=== PATIENT | female | born 1965 | race Caucasian/White ===

== ENCOUNTER 2017-10-10 13:58 | Observation (INO) | payer BC, OTHER ==
[2017-10-10] MEDS ORDERED: PROMETHAZINE 25 MG/ML VIAL ONE ×2 (14:36→16:15)
[2017-10-10] MEDS ORDERED: MEPERIDINE HCL 25 MG/0.5 ML ONE ×2 (14:36→16:15)
[2017-10-10 14:52] LABS: Absolute Lymphocytes (CBC) 1.7 K/uL (0.7-4.9); Absolute Monocytes 0.3 K/uL (0.1-1.3); Absolute Neutrophil 16.3 K/uL (1.8-8.0); Basophils % 0.5 % (0-1.3); Hematocrit 42.5 % (36.0-45.0); Lymphocytes % 9.4 % (15.3-44.8); MCH 28.9 pg (27.0-35.0); MCV 86.9 fL (80-100); MPV 8.1 fL (7.6-11.3); Monocytes % 1.5 % (3.3-12.3); RBC Red Blood Cell Count 4.88 M/uL (3.86-4.86)
[2017-10-10 15:12] LABS: Bilirubin Direct 0.1 mg/dL (0-0.2); Bilirubin Total 0.3 mg/dL (0.3-1.2)
--- NOTE | 2017-10-10 15:54 | RAD REPORT ---
EXAM DESCRIPTION: CT - Abdomen Pelvis W Contrast - 10/10/2017 3:34 pm CLINICAL HISTORY: Epigastric pain COMPARISON: None. TECHNIQUE: Biphasic, helical CT imaging of the abdomen and pelvis was performed following 100 ml non -ionic IV contrast. Oral contrast was given. All CT scans are performed using dose optimization technique as appropriate and may include automated exposure control or mA/KV adjustment according to patient size. FINDINGS: No suspicious findings in the lung bases. The liver, spleen, and pancreas show no suspicious findings. Gallbladder and biliary tree are also wi thout suspicious finding. Gallstones can be occult. Symmetric renal function is seen with no hydronephrosis or suspicious renal mass. No pyelonephritis o r acute renal parenchymal process. No urinary bladder abnormality. Uterus is absent. No suspicious ov patrick finding on the right. A 3.2 centimeter left ovarian cyst is present. No dilated bowel loops or bowel wall thickening. No appendicitis. No free air, free fluid or inflamma tory stranding. No hernia, mass or bulky lymphadenopathy. The urinary bladder is without significant finding. No adrenal abnormality. No suspicious bony findings. IMPRESSION: Gallbladder is well filled but not abnormally distended. No acute gallbladder or biliary tree finding. Gallstones can be occult. No stomach, pancreatic or duodenal abnormality as a source for epigastric pain. A 3.2 centimeter left ovarian cyst is present. This can be monitored on a followup study in 3-4 month s to assure involution or stability.
--- NOTE | 2017-10-10 15:55 | RAD REPORT ---
EXAM DESCRIPTION: US - Abdomen Exam Limited - 10/10/2017 3:14 pm CLINICAL HISTORY: Epigastric pain COMPARISON: None. FINDINGS: A 2.1 centimeter gallstone is present fixed near the neck of the gallbladder. No other sto jonh or sludge confirmed. No wall thickening or pericholecystic fluid. Biliary tree within normal limi ts. No duct stone identified. IMPRESSION: Single 2.1 cm gallstone fixed near the neck of the gallbladder. No other gallbladder or biliary tree finding.
[2017-10-10] MEDS ORDERED: NA CHLORIDE 0.9% 1,000 ML ONE (16:12)
[2017-10-10] MEDS ORDERED: CEFOXITIN/SWI 1gm 1 GM/10 ML SYR ONE (16:13)
[2017-10-10] MEDS ORDERED: METRONIDAZOLE 500mg IVPB 500 MG/100 ML BAG IV ONE (16:15)
[2017-10-10] MEDS ORDERED: KCL 20 MEQ/100 mL IVPB 20 MEQ/100 ML BAG IV ONE (16:16)
--- NOTE | 2017-10-10 16:26 | EDPHYS ---
Physician Documentation [facility] Name: Radha Fink Age: 52 yrs Sex: Female : 1965 Arrival Date: 10/10/2017 Time: 14:02 Bed 23 Private MD: ED Physician Chin Hernandez HPI: 10/10 16:17 This 52 yrs old Female presents to ER via Wheelchair with complaints of jr8 Abdominal Pain, Vomiting. 16:17 The patient presents with abdominal pain in the epigastric area, in the upper abdomen. jr8 Onset: The symptoms/episode began/occurred acutely, today. The symptoms do not radiate. Associated signs and symptoms: Pertinent positives: nausea and vomiting. The symptoms are described as shooting. Modifying factors: The symptoms are alleviated by nothing, the symptoms are aggravated by nothing. Severity of pain: At its worst the pain was moderate in the emergency department the pain is unchanged. The patient has not experienced similar symptoms in the past. The patient has not recently seen a physician. 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 - Social history:: Smoking status: Patient/guardian denies using tobacco. ROS: 16:17 Eyes: Negative for injury, pain, redness, and discharge, ENT: Negative for injury, jr8 pain, and discharge, Neck: Negative for injury, pain, and swelling, Cardiovascular: Negative for chest pain, palpitations, and edema, Respiratory: Negative for shortness of breath, cough, wheezing, and pleuritic chest pain, Back: Negative for injury and pain, MS/Extremity: Negative for injury and deformity, Skin: Negative for injury, rash, and discoloration, Neuro: Negative for headache, weakness, numbness, tingling, and seizure. 16:17 Abdomen/GI: Positive for abdominal pain, nausea and vomiting, Negative for diarrhea, constipation, abdominal cramps, abdominal distension, anorexia, dysphagia, hematemesis, black/tarry stool, rectal pain, rectal bleeding, bowel incontinence, flatulence. Exam: 16:17 Eyes: Pupils equal round and reactive to light, extra-ocular motions intact. Lids and jr8 lashes normal. Conjunctiva and sclera are non-icteric and not injected. Cornea within normal limits. Periorbital areas with no swelling, redness, or edema. ENT: Nares patent. No nasal discharge, no septal abnormalities noted. Tympanic membranes are normal and external auditory canals are clear. Oropharynx with no redness, swelling, or masses, exudates, or evidence of obstruction, uvula midline. Mucous membranes moist. Neck: Trachea midline, no thyromegaly or masses palpated, and no cervical lymphadenopathy. Supple, full range of motion without nuchal rigidity, or vertebral point tenderness. No Meningismus. Cardiovascular: Regular rate and rhythm with a normal S1 and S2. No gallops, murmurs, or rubs. Normal PMI, no JVD. No pulse deficits. Respiratory: Lungs have equal breath sounds bilaterally, clear to auscultation and percussion. No rales, rhonchi or wheezes noted. No increased work of breathing, no retractions or nasal flaring. Back: No spinal tenderness. No costovertebral tenderness. Full range of motion. Skin: Warm, dry with normal turgor. Normal color with no rashes, no lesions, and no evidence of cellulitis. MS/ Extremity: Pulses equal, no cyanosis. Neurovascular intact. Full, normal range of motion. Neuro: Awake and alert, GCS 15, oriented to person, place, time, and situation. Cranial nerves II-XII grossly intact. Motor strength 5/5 in all extremities. Sensory grossly intact. Cerebellar exam normal. Normal gait. 16:17 Abdomen/GI: Inspection: obese Bowel sounds: active, all quadrants, Palpation: soft, in all quadrants, moderate abdominal tenderness, in the epigastric area and right upper quadrant, voluntary guarding, is elicited in the epigastric area, involuntary guarding, is not appreciated, no appreciated organomegaly, Indicators: McBurney's point is not tender, Adamson's sign is positive, Rovsing's sign is negative. Vital Signs: 14:06 BP 144 / 110; Pulse 77; Resp 19; Temp 97.6(TE); Pulse Ox 100% on R/A; Weight 86.18 kg; la1 Height 5 ft. 0 in. (152.40 cm); 14:30 BP 116 / 59; Pulse 67; Resp 16; Pulse Ox 96% on R/A; tl3 16:40 BP 116 / 62; Pulse 70; Resp 16; Pulse Ox 99% on 2 lpm NC; tl3 14:06 Body Mass Index 37.11 (86.18 kg, 152.40 cm) la1 MDM: 14:13 Patient medically screened. [facility] 16:23 Data reviewed: vital signs, nurses notes, lab test result(s), radiologic studies, CT jr8 scan, ultrasound. Data interpreted: Pulse oximetry: on room air is 96 %. Interpretation: normal. Counseling: I had a detailed discussion with the patient and/or guardian regarding: the historical points, exam findings, and any diagnostic results supporting the discharge/admit diagnosis, lab results, radiology results, the need for further work-up and treatment in the hospital. Physician consultation: Robbie Melgoza MD was called at 16:24, was contacted at 16:24, regarding admission, to the medical/surgical unit. consult, patient's condition, and will see patient. 10/10 14:15 Order name: Basic Metabolic Panel; Complete Time: 15:32 10/10 14:15 Order name: CBC with Diff; Complete Time: 15:14 10/10 14:15 Order name: Creatinine for Radiology; Complete Time: 15:14 10/10 14:15 Order name: Hepatic Function; Complete Time: 15:32 10/10 14:15 Order name: Lipase; Complete Time: 15:32 10/10 14:16 Order name: US Abdomen Limited; Complete Time: 15:58 10/10 15:14 Order name: CT Abd/Pelvis - W/Contrast; Complete Time: 15:58 10/10 14:15 Order name: IV Saline Lock; Complete Time: 15:23 10/10 14:15 Order name: Labs collected and sent; Complete Time: 15:23 10/10 14:15 Order name: Urine Dipstick-Ancillary (obtain specimen); Complete Time: 15:23 10/10 14:15 Order name: EKG - Nurse/Tech; Complete Time: 14:25 10/10 16:33 Order name: CONS Physician Consult EDMS 10/10 16:33 Order name: CONS Physician Consult EDMS Administered Medications: 14:45 Drug: Demerol 25 mg Route: IVP; Infused Over: 3 mins; Site: right antecubital; tl3 14:45 Drug: Promethazine 12.5 mg Route: IVP; Infused Over: 3 mins; Site: right antecubital; tl3 16:36 Drug: Flagyl 500 mg Volume: 100 ml; Route: IVPB; Rate: 200 ml/hr; Infused Over: 30 tl3 mins; Site: right antecubital; Delivery: Primary tubing; 16:37 Drug: Mefoxin 1 grams Route: IVPB; Infused Over: 30 mins; Site: right antecubital; tl3 Delivery: Primary tubing; 16:38 Drug: Demerol 25 mg Route: IVP; Infused Over: 3 mins; Site: right antecubital; tl3 16:38 Drug: Phenergan 12.5 mg Route: IVP; Infused Over: 5 mins; Site: right antecubital; tl3 16:38 Drug: Potassium Chloride 20 mEq Route: IV; Rate: calculated rate; Site: right tl3 antecubital; Delivery: Primary tubing; 16:38 Drug: NS 0.9% 1000 ml Route: IV; Rate: 100 ml/hr; Site: right antecubital; Delivery: tl3 Primary tubing; Disposition: 10/10/17 16:26 Hospitalization ordered by Naida Gloria for Observation. Preliminary diagnosis are Cholelithiasis, Elevated white blood cell count, Unspecified abdominal pain. - Bed requested for Telemetry/MedSurg (observation). - Status is Observation. tl3 - Condition is Stable. - Problem is new. - Symptoms have improved. UTI on Admission? No Addendum: 10/12/2017 09:04 Co-signature as Attending Physician, Chin Hernandez MD I agree with the assessment and c cunha plan of care. Signatures: Dispatcher [employer] EDLA Chin Hernandez MD MD cha Roszak, Josh, PA PA jr8 Nikita Ritter RN RN [email or web address] Paradise Bran Tammy, RN RN tl3 Corrections: (The following items were deleted from the chart) 10/10 17:10 16:26 Hospitalization Ordered by Naida Gloria MD for Observation. Preliminary ag diagnosis is Cholelithiasis; Elevated white blood cell count; Unspecified abdominal pain. Bed requested for Telemetry/MedSurg (observation). Status is Observation. Condition is Stable. Problem is new. Symptoms have improved. UTI on Admission? No. jr8 18:11 17:10 10/10/2017 16:26 Hospitalization Ordered by Naida Gloria MD for Observation. tl3 Preliminary diagnosis is Cholelithiasis; Elevated white blood cell count; Unspecified abdominal pain. Bed requested for Telemetry/MedSurg (observation). Status is Observation. Condition is Stable. Problem is new. Symptoms have improved. UTI on Admission? No. ag
--- NOTE | 2017-10-10 16:26 | ER ---
Nurse's Notes [facility] Name: Radha Fink Age: 52 yrs Sex: Female : 1965 Arrival Date: 10/10/2017 Time: 14:02 Bed 23 Private MD: Diagnosis: Cholelithiasis;Elevated white blood cell count;Unspecified abdominal pain Presentation: 10/10 14:04 Presenting complaint: Patient states: Epigastric pain since 0400 this morning, la1 nausea/vomiting, pt appears uncomfortable. Transition of care: patient was not received from another setting of care. Onset of symptoms was October 10, 2017. Initial Sepsis Screen: Does the patient meet any 2 criteria? No. Patient's initial sepsis screen is negative. Does the patient have a suspected source of infection? No. Patient's initial sepsis screen is negative. Care prior to arrival: None. 14:04 Method Of Arrival: Wheelchair la1 14:04 Acuity: CHICO 2 la1 Triage Assessment: 16:42 General: Behavior is cooperative, appropriate for age, anxious, listless. 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 - Social history:: Smoking status: Patient/guardian denies using tobacco. Screenin:42 Abuse screen: Denies threats or abuse. Nutritional screening: No deficits noted. tl3 Tuberculosis screening: No symptoms or risk factors identified. Fall Risk None identified. Assessment: 14:30 General: Appears distressed, uncomfortable, obese, well groomed, well developed, well tl3 nourished. Pain: Complains of pain in epigastric area Pain currently is 10 out of 10 on a pain scale. Neuro: Level of Consciousness is awake, alert, obeys commands, Oriented to person, place, time, situation, Appropriate for age. Cardiovascular: Heart tones S1 S2 present. Cardiovascular: Capillary refill is > 3 seconds in bilateral fingers. Respiratory: Airway is patent Trachea midline Respiratory effort is even, labored, Respiratory pattern is regular, symmetrical. GI: Abdomen is round Bowel sounds present X 4 quads. Abd is soft and non tender Reports epigastric pain, vomiting. : No signs and/or symptoms were reported regarding the genitourinary system. EENT: No signs and/or symptoms were reported regarding the EENT system. Derm: No signs and/or symptoms reported regarding the dermatologic system. Musculoskeletal: No signs and/or symptoms reported regarding the musculoskeletal system. 15:40 Reassessment: No changes from previously documented assessment. Patient and/or family tl3 updated on plan of care and expected duration. Pain level reassessed. Patient is alert, oriented x 3, equal unlabored respirations, skin warm/dry/pink. pt resting, at bedside. 16:40 Reassessment: Patient appears in no apparent distress at this time. No changes from tl3 previously documented assessment. Patient and/or family updated on plan of care and expected duration. Pain level reassessed. Patient is alert, oriented x 3, equal unlabored respirations, skin warm/dry/pink. pt comfortable after administration of pain meds, family at bedside, o2 sats dropped to 90%, 2 L/M O2 per NC applied sats 99%. 17:37 Reassessment: Patient appears in no apparent distress at this time. No changes from tl3 previously documented assessment. Patient and/or family updated on plan of care and expected duration. Pain level reassessed. Patient is alert, oriented x 3, equal unlabored respirations, skin warm/dry/pink. report called to floor, Raiza NAGY. 17:37 Reassessment: pt assisted to bedside commode. tl3 Vital Signs: 14:06 BP 144 / 110; Pulse 77; Resp 19; Temp 97.6(TE); Pulse Ox 100% on R/A; Weight 86.18 kg; la1 Height 5 ft. 0 in. (152.40 cm); 14:30 BP 116 / 59; Pulse 67; Resp 16; Pulse Ox 96% on R/A; tl3 16:40 BP 116 / 62; Pulse 70; Resp 16; Pulse Ox 99% on 2 lpm NC; tl3 14:06 Body Mass Index 37.11 (86.18 kg, 152.40 cm) la1 ED Course: 13:45 No provider procedures requiring assistance completed. Inserted saline lock: 20 gauge tl3 in right antecubital area, using aseptic technique. Blood collected. 14:02 Patient arrived in ED. mr 14:05 Triage completed. la1 14:07 Arm band placed on right wrist. la1 14:13 Daniel Pitts PA is PHCP. jr8 14:13 Chin Hernandez MD is Attending Physician. jr8 14:30 Maricel Avelar, LILO is Primary Nurse. tl3 14:51 Ultrasound completed. Patient tolerated well. sg3 15:24 Patient has correct armband on for positive identification. Bed in low position. Call tl3 light in reach. Side rails up X 1. Adult w/ patient. Pulse ox on. NIBP on. 15:34 CT Abd/Pelvis - W/Contrast In Process Unspecified. EDMS 15:47 CT completed. Patient tolerated procedure well. Patient moved back from CT. jg1 16:25 Naida Gloria MD is Hospitalizing Provider. jr8 17:37 Patient admitted, IV remains in place. tl3 Administered Medications: 14:45 Drug: Demerol 25 mg Route: IVP; Infused Over: 3 mins; Site: right antecubital; tl3 14:45 Drug: Promethazine 12.5 mg Route: IVP; Infused Over: 3 mins; Site: right antecubital; tl3 16:36 Drug: Flagyl 500 mg Volume: 100 ml; Route: IVPB; Rate: 200 ml/hr; Infused Over: 30 tl3 mins; Site: right antecubital; Delivery: Primary tubing; 16:37 Drug: Mefoxin 1 grams Route: IVPB; Infused Over: 30 mins; Site: right antecubital; tl3 Delivery: Primary tubing; 16:38 Drug: Demerol 25 mg Route: IVP; Infused Over: 3 mins; Site: right antecubital; tl3 16:38 Drug: Phenergan 12.5 mg Route: IVP; Infused Over: 5 mins; Site: right antecubital; tl3 16:38 Drug: Potassium Chloride 20 mEq Route: IV; Rate: calculated rate; Site: right tl3 antecubital; Delivery: Primary tubing; 16:38 Drug: NS 0.9% 1000 ml Route: IV; Rate: 100 ml/hr; Site: right antecubital; Delivery: tl3 Primary tubing; Outcome: 16:26 Decision to Hospitalize by Provider. jr8 17:37 Admitted to Tele accompanied by tech, via wheelchair, with chart, Report called to tl3 Raiza NAGY 17:37 Condition: stable 17:37 Instructed on the need for admit. 18:11 Patient left the ED. tl3 Signatures: Dispatcher [employer] EDLuz Maria Rodriguez mr Spencer, Daniel Loaiza PA PA jr8 Nikita Ritter, RN RN la1 Sarah James sg3 Maricel Avelar, LILO RN tl3 Corrections: (The following items were deleted from the chart) 15:15 15:14 In radiology for Abdomen Limited+US.RAD.BRZ. EDFL sg3
[2017-10-10] MEDS ORDERED: ONDANSETRON 4 MG/2 ML VIAL IV PRN ×2 (18:04→18:27)
[2017-10-10] MEDS ORDERED: ZOLPIDEM TARTRATE 5 MG TABLET PO PRN (18:04)
[2017-10-10] MEDS ORDERED: HYDRALAZINE HCL 20 MG/ML VIAL IV PRN (18:08)
[2017-10-10] MEDS ORDERED: NA CHLORIDE 0.9% 1,000 ML IV SCH (18:27)
[2017-10-10] MEDS ORDERED: ACETAMINOPHEN 500 MG TAB PO PRN (18:27)
[2017-10-10] MEDS ORDERED: MORPHINE 4 MG/ML SYR IV PRN (18:27)
[2017-10-10] MEDS ORDERED: MORPHINE 2 MG/ML SYR IV PRN (18:27)
[2017-10-10] MEDS: D5 0.45 NS 1,000 ML IV SCH (20:14)
[2017-10-10] MEDS: Morphine 2 MG/2 ML SYR IV PRN (20:14)
[2017-10-10 20:21] LABS: Thyroid Stimulating Hormone 0.51 uIU/mL (0.34-5.60)
[2017-10-10] MEDS ORDERED: CEFOXITIN SODIUM 1 GM/VIAL IVPB SCH (22:00)
[2017-10-10 22:55] VITALS: BMI 36.9
[2017-10-11] MEDS: METRONIDAZOLE 500mg IVPB 500 MG/100 ML BAG IV SCH ×4 (00:45→17:26)
[2017-10-11] MEDS: PIPER/TAZO/NS 3.375gm 3.375 GM/100 ML BAG IVPB SCH ×3 (00:45→17:26)
[2017-10-11] MEDS: Morphine 2 MG/2 ML SYR IV PRN (02:07)
[2017-10-11] MEDS ORDERED: POTASSIUM CL 40 MEQ in NA CHLORIDE 0.9% 500 ML IV SCH (03:00)
[2017-10-11] MEDS: KCL 20 MEQ/100 mL IVPB 20 MEQ/100 ML BAG IV SCH ×4 (03:02→11:38)
--- NOTE | 2017-10-11 04:32 | HP ---
Date of Admission: 10/10/2017 Reason For Admission: Abdominal pain. No nausea, vomiting. History Of Present Illness: This is a 52-year-old female with history of overweight hypertension, hyperlipidemia, who presented with abdominal pain that started in the right upper quadrant around 4 a.m. progressively got worse. She does not have vomiting. She vomited her food and now she is only vomiting. The pain can get up to 8/10. There was no fever, no chills. No shortness of breath. No cough. In the ER, she was evaluated and found to have leukocytosis with white blood cells of 18.4. Ultrasound of the abdomen done showed 2.1 cm gallstone fixed near the neck of the gallbladder. CAT scan of the abdomen and pelvis showed ovarian cyst also gallbladder as well failed without any other finding. The patient has been admitted for cholecystectomy scheduled tomorrow morning. She currently continued to have abdominal pain. The pain is colicky. No more nausea or vomiting. Her at the bedside. Review of Systems: Otherwise as below. Past Medical History: Significant for hypertension, hyperlipidemia, overweight , hypothyroidism, thyroid cancer. Past Surgical History: Significant for hysterectomy, thyroid resection with biopsy, bilateral feet surgery. Allergies: NONE. Social History: She is . She has 3 kids. She is retired. Does not smoke. Does not use any drugs. Family History: Father alive and healthy. The mother . Home Medication: She is on hydrochlorothiazide , DEVIN inihibitor Other medication not available at this point. Review of Systems: Denies any fever, chills, night sweats, dizziness, lightheaded, headache, blurred vision. There is no cough, sputum, shortness of breath. She does have no chest pain. No palpitations. No PND, orthopnea, dyspnea, exertion, lower extremity edema. She does have nausea, vomiting, abdominal pain. There is no change in bowel movement. No diarrhea, constipation, dysuria, frequency, urgency, hematuria. There is no history of depression, anxiety, seizure, or stroke. Physical Examination: Vital Signs: Currently, blood pressure is 150/62, respiratory rate 16, pulse 70 , temperature 97.6. She is saturating 99% on room air. General: She is alert and oriented x3. Does not look in any distress. HEENT: Atraumatic, normocephalic. PERRLA. Oral mucosa is moist. Neck: Supple. No JVD. No carotid bruit. Chest: Clear to auscultation. Good air entry. Heart: Regular rate and rhythm. S1, S2 normal. No gallop or murmur. Abdomen: Soft. There is a right upper quadrant tenderness to palpation. Active bowel sounds. There are active bowel sounds. There is some rebound in the right upper quadrant. There is no guarding. Extremities: No clubbing, cyanosis, or edema. No calf tenderness. Neurologic: Grossly intact. Laboratory Data: Labs showed CBC within normal except for white blood cells 18.4, platelet normal. Chemistry within normal except for potassium at 3. Glucose 135, creatinine 0.76, globulin 4, lipase of 20, CT and US as above. Assessment And Plan: A 52-year-old female with history of hypertension, hyperlipidemia, overweight, who presented with abdominal pain and found to have large gallstones. Impression: 1. Choledocholithiasis with? cholecystitis. Given patient's leukocytosis, I would proceed with blood culture. I have started her empirically on Zosyn every 6 hours. Surgical consult requested. The patient will have surgery in a.m. We will continue IV fluid D5 half-normal. We will keep patient n.p.o. for now. 2. Abdominal pain. We will start patient on morphine 2 mg every 2 hours for pain control. 3. Nausea, vomiting. The patient is on Zofran. 4. History of hypertension. I will place the patient on hydralazine as needed. The patient will be n.p.o. and so she cannot resume her home medication. 5. No DVT prophylaxis. The patient may go on surgery tomorrow. 6. Hyperlipidemia. The patient was on statin I will hold that for now. The patient will be n.p.o. GRADY/KENTRELL Voice ID: [id number] [facility]
[2017-10-11] MEDS: D5 0.45 NS 1,000 ML IV SCH ×2 (04:56→15:00)
[2017-10-11 06:23] LABS: Absolute Monocytes 1.3 K/uL (0.1-1.3); Absolute Neutrophil 15.3 K/uL (1.8-8.0); Basophils % 0.1 % (0-1.3); Eosinophils % 0.1 % (0-4.4); Hematocrit 38.1 % (36.0-45.0); Lymphocytes % 10.6 % (15.3-44.8); MCH 28.9 pg (27.0-35.0); MCV 86.8 fL (80-100); MPV 7.7 fL (7.6-11.3); Monocytes % 6.9 % (3.3-12.3); RBC Red Blood Cell Count 4.38 M/uL (3.86-4.86)
[2017-10-11 06:42] LABS: Albumin 3.2 g/dL (3.2-5.5); Bilirubin Direct 0.1 mg/dL (0-0.2); Bilirubin Total 0.6 mg/dL (0.3-1.2); Potassium 3.3 mEq/L (3.6-5.0)
[2017-10-11] MEDS ORDERED: BUPIVACAINE 0.5% PF 10 ML VIAL ONE (07:42)
[2017-10-11] MEDS ORDERED: Ringers Lactate 1,000 ML IV ONE (08:32)
[2017-10-11] MEDS ORDERED: LIDOCAINE 1% MPF 5 ML VIAL ONE (09:06)
[2017-10-11] MEDS ORDERED: PROPOFOL 200 MG/20 ML VIAL IV ONE (09:06)
[2017-10-11] MEDS ORDERED: ROCURONIUM 50 MG/5 ML VIAL IV ONE (09:06)
[2017-10-11] MEDS ORDERED: FENTANYL CITR 100 MCG/2 ML ONE (09:07)
[2017-10-11] MEDS ORDERED: KETOROLAC 30 MG/ML INJ ONE (09:32)
[2017-10-11] MEDS ORDERED: ONDANSETRON HCL 40 MG/20 ML VIAL ONE (09:32)
[2017-10-11] MEDS ORDERED: DEXAMETHASONE 10 MG/ML VIAL ONE (09:32)
[2017-10-11] MEDS ORDERED: Phenylephrine HCl 10 MG/ML 1 ML VIAL ONE (09:41)
[2017-10-11] MEDS ORDERED: NEOSTIGMINE 1 MG/ML -5 ML SYRINGE ONE (09:51)
[2017-10-11] MEDS ORDERED: GLYCOPYRROLATE 0.2 MG/ML SYR ONE (09:51)
--- NOTE | 2017-10-11 10:34 | P.OP ---
Apple Checker: [place] FLEMING Preoperative diagnosis: Acute Cholecystitis and Cholelithiasis Postoperative diagnosis: same Primary procedure: Lap Alivia Anesthesia: General Estimated blood loss: min Specimen: GB Findings: as above Complications: None Transferred to: Recovery Room Condition: Good
[2017-10-11] MEDS ORDERED: Mastisol Adhesive Liq ONE (10:39)
[2017-10-11] MEDS ORDERED: ONDANSETRON 4 MG/2 ML VIAL IV PRN (11:17)
[2017-10-11] MEDS ORDERED: HYDROMORPHONE HCL 2 MG/ML inj IV PRN (11:17)
[2017-10-11] MEDS ORDERED: HYDROCODONE/APAP 7.5/325 MG TAB PO PRN (11:17)
--- NOTE | 2017-10-11 12:40 | PREOPCON ---
Date of Consultation: 10/10/2017 Reason: Abdominal pain. History Of Present Illness: The patient is a 52-year-old female who comes in with acute onset of epi gastric right upper quadrant pain associated with nausea, vomiting, bloating, belching, heartburn pos tprandial in nature. No diarrhea or constipation. No blood in her stool. No dysuria or hematuria. No sore throat, runny nose, cough, headaches, or dizziness. No chest pain. No fever or chills. Fi rst episode. Review of Systems: Otherwise unremarkable. Past Medical History: Hypertension, hyperlipidemia, hypothyroidism, thyroid cancer, obesity. Past Surgical History: Significant for hysterectomy, thyroid surgery and foot surgery. Allergies: NO ALLERGIES. Social History: She does not smoke or drink. Family History: Noncontributory. Physical Examination: Vital Signs: Stable. She is afebrile. She is awake, alert, and oriented x3. Head and Neck: Cranial nerves 2 through 12 grossly within normal limits. No neck masses. No JVD. Throat clear. Neck is supple. No evidence of icterus. Chest: Clear. Heart: S1, S2. Abdomen: Soft, nondistended, positive right upper quadrant tenderness with rebound. No rigidity or guarding. Extremity: Adequately perfused. Nontender. Neuro: Nonfocal. Laboratory Data: White count is 18.6 with a left shift and LFT, amylase, lipase is normal. Her pota ssium is low and has been replaced it came up from 2.6 to 3.3. Ultrasound of the abdomen shows a sin gle 2.1 cm gallstone fixed into the neck of the gallbladder. No other gallbladder or biliary tree ab normal findings noted. CT of the abdomen and pelvis shows just an ovarian cyst otherwise unremarkabl e. Assessment: A 52-year-old female with acute cholecystitis and cholelithiasis. Recommendation: Admit n.p.o., IV fluid, IV antibiotic, to the OR for laparoscopic cholecystectomy, p ossible open. The patient understands risks, benefits, and alternatives and agrees to procedure. /MODL Voice ID: [id number] Report ID: [id number]
--- NOTE | 2017-10-11 15:25 | PN ---
Subjective: Currently the patient is doing well. She is going to surgery. She had uneventful night except for right upper quadrant pain as before. No nausea or vomiting. No fever. Review of Systems: Otherwise, negative. Objective: Vital Signs: Blood pressure is 132/69, respiratory rate 20, pulse 67, temperature 97.4. General: She is fully alert, oriented x3. Does not look in any distress. HEENT: Atraumatic, normocephalic. PERRLA. Oral mucosa is moist. Neck: Supple. No JVD. No carotid bruits. Chest: Clear to auscultation. Good air entry. Heart: Regular rate and rhythm. S1, S2 normal. No gallop or murmur. Abdomen: Soft. Tenderness in the right upper quadrant with rebound, mild guarding. Positive bowel sounds. Extremities: No clubbing, cyanosis, or edema. No calf tenderness. Neurologic: Grossly intact. Laboratory Data: CBC showed white blood cells, again at 18.6. Left shift. Normal platelets. CMP s howed potassium much better up to 3.3 from 2.6 yesterday, otherwise normal. Assessment And Plan: 1.Choledocholithiasis with ? cholecystitis. Proceed to the OR today for cholecystectomy. Continue Zosyn empirically. White blood cells still high. Blood culture ordered but results still pending. 2.Symptomatic treatment for nausea if needed. 3.Symptomatic treatment for pain with morphine. 4.No deep vein thrombosis prophylaxis. The patient is going to have surgery. 5.Discharge home. Postop plan. JEANNIE Voice ID: [id number] Report ID: [id number]
--- NOTE | 2017-10-11 16:07 | OP ---
Date of Procedure: 10/11/2017 Surgeon: Robbie Melgoza MD Tooling Specialist: Kaye Oliver, certified SOFTWARE DEVELOPER MID LEVEL. Preoperative Diagnosis: Acute cholecystitis and cholelithiasis. Postoperative Diagnosis: Acute cholecystitis and cholelithiasis. Procedure Performed: Laparoscopic cholecystectomy. Estimated Blood Loss: Minimal. Specimen: Gallbladder. Findings: As above. Anesthesia: General. Complications: None. Disposition: The patient tolerated the procedure in stable condition, taken to Recovery in good gene ral condition. Operative Note: The patient was brought to the OR and placed in supine position. General anesthesia was begun. The patient was prepped and draped in the usual sterile fashion. Marcaine 0.5% was infi ltrated locally. A 15-blade was used to make a 2 cm supraumbilical midline incision. Subcutaneous t issue divided. The fascia was identified and divided. A #1 Vicryl stay suture was placed. Peritone al cavity was entered with sharp and blunt dissection, 12 mm trocar was placed into the peritoneal ca vity direct vision. Pneumoperitoneum established. Then, three 5-mm trocars were placed, 1 in the ep igastrium just to the right of midline, and 2 in the right subcostal region. Laparoscopy revealed a distended acutely inflamed gallbladder, which was aspirated of bile and then fundus retracted superio rly. Infundibulum identified, retracted inferolaterally. Cystic duct and cystic artery were clearly identified with blunt dissection. Clips placed. Both structures divided. Cautery used to remove t he gallbladder from the liver bed. Bleeding on the liver bed was controlled with cautery. The gallb ladder was retrieved through the umbilicus via an EndoCatch bag. Right upper quadrant was irrigated. Effluent was clear. No evidence of bleeding or bile leakage appreciated. Subsequently, all trocar s were removed under direct vision. Stay sutures were tied to each other across the fascial defect. Subcutaneous wounds were irrigated. Bleeding controlled cautery. A 3-0 chromic used for subcutaneo us tissue and closed the skin. Sterile dressing was applied. The patient was awakened and taken to Recovery in good general condition. /MODL Voice ID: [id number] Report ID: [id number]
[2017-10-12] MEDS: METRONIDAZOLE 500mg IVPB 500 MG/100 ML BAG IV SCH ×2 (00:13→05:52)
[2017-10-12] MEDS: PIPER/TAZO/NS 3.375gm 3.375 GM/100 ML BAG IVPB SCH ×2 (00:16→08:13)
[2017-10-12] MEDS: D5 0.45 NS 1,000 ML IV SCH (00:19)
[2017-10-12 04:11] LABS: Absolute Lymphocytes (CBC) 1.3 K/uL (0.7-4.9); Absolute Monocytes 0.5 K/uL (0.1-1.3); Absolute Neutrophil 15.9 K/uL (1.8-8.0); Hematocrit 34.6 % (36.0-45.0); Lymphocytes % 7.2 % (15.3-44.8); MCV 86.9 fL (80-100); MPV 7.7 fL (7.6-11.3); Monocytes % 3.1 % (3.3-12.3); RBC Red Blood Cell Count 3.98 M/uL (3.86-4.86)
[2017-10-12 04:56] LABS: Magnesium 1.8 mg/dL (1.8-2.5); Phosphorus 2.7 mg/dL (2.5-4.3); Potassium 3.6 mEq/L (3.6-5.0)
[2017-10-12 05:13] LABS: Blood Morphology Comment NOT SEEN (NOT SEEN); Platelet Estimate ADEQ
[2017-10-12] MEDS ORDERED: KCL 20 MEQ/100 mL IVPB 20 MEQ/100 ML BAG IV SCH (06:00)
[2017-10-12 06:24] VITALS: O2SAT 97
--- NOTE | 2017-10-12 09:16 | EKG ---
Test Date: 2017-10-10 Test Time: 14:16:00 Inspection Clerk: SHADIA MEASUREMENT RESULTS: Intervals: Rate: 70 AR: 180 QRSD: 96 QT: 464 QTc: 501 [place]: P: 44 AR: 180 QRS: 7 T: 44 INTERPRETIVE STATEMENTS: Normal sinus rhythm Prolonged QT Abnormal ECG No previous ECG available for comparison Electronically Signed On 10-12-17 09:16:21 CDT by Flip Batres
[2017-10-12 09:54] VITALS: BP 120/68; TEMP 97.3
--- NOTE | 2017-10-12 10:35 | P.DS ---
Admission Date: 10/10/17 Discharge Date: 10/12/17 Primary Care Provider: Dr. James Aguilar ([place], [place]) Disposition: ROUTINE DISCHARGE Discharge Condition: GOOD Reason for Admission: Right upper quadrant abdominal pain Consultations: Surgery-Dr. Melgoza Procedures: Abdominal ultrasound: FINDINGS: A 2.1 centimeter gallstone is present fixed near the neck of the gallbladder. No other stones or sludge confirmed. No wall thickening or pericholecystic fluid. Biliary tree within normal limits. No duct stone identified. IMPRESSION: Single 2.1 cm gallstone fixed near the neck of the gallbladder. No other gallbladder or biliary tree finding. CT scan: FINDINGS: No suspicious findings in the lung bases. The liver, spleen, and pancreas show no suspicious findings. Gallbladder and biliary tree are also without suspicious finding. Gallstones can be occult. Symmetric renal function is seen with no hydronephrosis or suspicious renal mass. No pyelonephritis or acute renal parenchymal process. No urinary bladder abnormality. Uterus is absent. No suspicious ovarian finding on the right. A 3.2 centimeter left ovarian cyst is present. No dilated bowel loops or bowel wall thickening. No appendicitis. No free air, free fluid or inflammatory stranding. No hernia, mass or bulky lymphadenopathy. The urinary bladder is without significant finding. No adrenal abnormality. No suspicious bony findings. IMPRESSION: Gallbladder is well filled but not abnormally distended. No acute gallbladder or biliary tree finding. Gallstones can be occult. No stomach, pancreatic or duodenal abnormality as a source for epigastric pain. A 3.2 centimeter left ovarian cyst is present. This can be monitored on a followup study in 3-4 months to assure involution or stability. Surgery: Date of Procedure: 10/11/2017 Surgeon: Robbie Melgoza MD Set Illustrator: Kaye Oliver, certified INDUSTRIAL RELATIONS WORKER. Preoperative Diagnosis: Acute cholecystitis and cholelithiasis. Postoperative Diagnosis: Acute cholecystitis and cholelithiasis. Procedure Performed: Laparoscopic cholecystectomy. Estimated Blood Loss: Minimal. Specimen: Gallbladder. Findings: As above. Anesthesia: General. Complications: None. - Problems (1) Abdominal pain Current Visit: Yes Status: Acute Qualifiers: Abdominal location: right upper quadrant Qualified Code(s): R10.11 - Right upper quadrant pain (2) Cholecystitis with cholelithiasis Current Visit: Yes Status: Acute Qualifiers: Cholelithiasis location: gallbladder Cholecystitis acuity: acute Biliary obstruction: without biliary obstruction Qualified Code(s): K80.00 - Calculus of gallbladder with acute cholecystitis without obstruction (3) Ovarian cyst Current Visit: Yes Status: Acute Qualifiers: Laterality: left Qualified Code(s): N83.202 - Unspecified ovarian cyst, left side (4) Hypertension Current Visit: Yes Status: Chronic Qualifiers: Hypertension type: essential hypertension Qualified Code(s): I10 - Essential (primary) hypertension (5) Hyperlipidemia Current Visit: Yes Status: Chronic Qualifiers: Hyperlipidemia type: unspecified Qualified Code(s): E78.5 - Hyperlipidemia , unspecified (6) Hypothyroidism Current Visit: Yes Status: Chronic Qualifiers: Hypothyroidism type: unspecified Qualified Code(s): E03.9 - Hypothyroidism , unspecified (7) Obesity Current Visit: Yes Status: Chronic Qualifiers: Obesity type: due to excess calories Obesity classification: adult class 2 (BMI 35 - 39.9) Serious obesity comorbidity presence: with serious comorbidity Body mass index: BMI 36.0-36.9 Qualified Code(s): E66.01 - Morbid (severe) obesity due to excess calories; Z68.36 - Body mass index (BMI) 36.0-36.9, adult (8) Anemia Current Visit: Yes Status: Acute Qualifiers: Anemia type: other cause Brief History of Present Illness: 52-year-old female presented emergency room with abdominal pain. Patient found to have cholelithiasis with cholecystitis. A 2.1 cm gallstone was noted at the neck of the gallbladder. The patient was admitted for evaluation and treatment. Surgery was consulted. Hospital Course: Patient presented with right upper quadrant pain. Patient found to have cholelithiasis with cholecystitis. A 2.1 cm gallstone was noted at the neck of the gallbladder. Patient was evaluated by surgery. Surgery recommended cholecystectomy. Patient had laparoscopic cholecystectomy. Patient tolerated the procedure well. At discharge she is without any significant abdominal pain , nausea or vomiting. Patient has tolerated her diet. White count was slightly elevated but improved at discharge. At discharge the patient will continue with Cipro 500 mg 1 pill twice daily for 7 days. She is to keep Steri- Strips on at all times. Patient may shower. Patient will follow up with surgery as directed. No heavy lifting, pushing or pulling is recommended. Postop instructions will be provided. Recommendation is to recheck CBC in 1-2 weeks to monitor resolution. Patient has hypertension. This remained stable during her stay. Patient may continue with her medications including losartan 100 mg daily and hydrochlorothiazide 12.5 mg daily. Patient may also continue with aspirin 81 mg daily. Recommendation is to maintain blood pressures less 150/80. Further adjustment can be done by her PCP. Patient has hyperlipidemia. She will continue with Lipitor 20 mg 1 pill once daily. Patient has hypothyroidism. Patient will continue with Levoxyl 150 mcg daily. Patient was found to have a left ovarian cyst. Recommendation is the patient follow up with gynecology as an outpatient to further monitor. Patient may require repeat ultrasound in the near future to monitor resolution. Lifestyle modification education will be provided. Vital Signs/Physical Exam: Temp Pulse Resp BP Pulse Ox 97.3 F 64 16 120/68 97 10/12/17 08:00 10/12/17 08:00 10/12/17 08:00 10/12/17 08:00 10/12/17 08:00 General: Alert, In no apparent distress, Oriented x3, Cooperative HEENT: Atraumatic, Mucous membr. moist/pink Neck: Supple, No Thyromegaly Respiratory: Clear to auscultation bilaterally, Normal air movement Cardiovascular: Normal pulses, Regular rate/rhythm Gastrointestinal: Normal bowel sounds, Soft and benign, Non-distended, No tenderness, No masses, No rebound, No guarding Musculoskeletal: No erythema, No tenderness, No warmth Integumentary: No tenderness/swelling, No erythema, No warmth, No cyanosis Neurological: Normal speech, Normal strength at 5/5 x4 extr, Normal tone, Normal affect Lymphatics: No axilla or inguinal lymphadenopathy Laboratory Data at Discharge: WBC 17.7 K/uL (4.3-10.9) H 10/12/17 03:44 Hgb 11.5 g/dL (12.0-15.0) L 10/12/17 03:44 Hct 34.6 % (36.0-45.0) L 10/12/17 03:44 Plt Count 287 K/uL (152-406) 10/12/17 03:44 Sodium 141 mEq/L (135-145) 10/12/17 03:44 Potassium 3.6 mEq/L (3.6-5.0) 10/12/17 03:44 BUN 7 mg/dL (6-20) 10/12/17 03:44 Creatinine 0.69 mg/dL (0.44-1.00) 10/12/17 03:44 Glucose 152 mg/dL (65-120) H 10/12/17 03:44 Phosphorus 2.7 mg/dL (2.5-4.3) 10/12/17 03:44 Magnesium 1.8 mg/dL (1.8-2.5) 10/12/17 03:44 Total Bilirubin 0.6 mg/dL (0.3-1.2) 10/11/17 05:49 AST 15 IU/L (10-42) 10/11/17 05:49 ALT 11 IU/L (10-60) 10/11/17 05:49 Alkaline Phosphatase 54 IU/L (42-121) 10/11/17 05:49 Lipase 17 U/L (22-51) L 10/11/17 05:49 Home Medications: Aspirin Chewable [Aspirin Chewable*] 1 tab PO DAILY 10/11/17 Atorvastatin Calcium [Lipitor*] 20 mg PO BEDTIME 10/11/17 Estradiol 2 mg PO BEDTIME 10/11/17 Hydrochlorothiazide [Hydrochlorothiazide*] 12.5 mg PO DAILY 10/11/17 Levothyroxine Sodium 150 mcg PO [id number] 10/11/17 Losartan Potassium 100 mg PO DAILY 10/11/17 Ciprofloxacin HCl [Cipro 500 MG Tablet] 500 mg PO BID #14 tab 10/12/17 New Medications: Ciprofloxacin HCl [Cipro 500 MG Tablet] 500 mg PO BID #14 tab Patient Discharge Instructions: 1. Patient will need to follow up with her PCP in 1 week to follow up this hospitalization. 2. Patient presented with right upper quadrant pain. Patient found to have cholelithiasis with cholecystitis. Patient evaluated by surgery. Patient required laparoscopic cholecystectomy. Patient tolerated the procedure well. At discharge the patient will continue with Cipro 500 mg 1 pill twice daily for 7 days. She is to keep Steri-Strips on at all times. Patient may shower. Patient will follow up with surgery as directed. No heavy lifting, pushing or pulling is recommended. Postop instructions will be provided. Recommendation is to recheck lab-CBC to monitor resolution. 3. Patient has hypertension. Patient may continue with her medications including losartan 100 mg daily and hydrochlorothiazide 12.5 mg daily. Patient may also continue with aspirin 81 mg daily. Recommendation is to maintain blood pressures less 150/80. Further adjustment can be done by her PCP. 4. Patient has hyperlipidemia. She will continue with Lipitor 20 mg 1 pill once daily. 5. Patient has hypothyroidism. Patient will continue with Levoxyl 150 mcg daily. 6. Patient found to have left ovarian cyst. Recommendations for the patient to follow up with gynecology as an outpatient to further monitor. Patient may require repeat ultrasound in the near future to monitor resolution. Diet: Low sodium Activity: No lifting more than 10 lbs Followup: Robbie Melgoza MD [ACTIVE - CAN ADMIT] - 1-2 Weeks Time spent managing pt's care (in minutes): 55
--- NOTE | 2017-10-12 15:06 | PN ---
Date of Progress Note: 10/12/2017 Subjective: The patient is awake, alert, tolerating diet. No pain. Objective: Vital Signs: Stable, afebrile. Abdomen: Benign. Laboratory Data: White count is still elevated at 17,000. Assessment: Status post laparoscopic cholecystectomy for acute cholecystitis and cholelithiasis. Recommendation: As patient is clinically doing well, we will discharge the patient on oral antibioti cs, Cipro. The patient will follow up with me in 1-2 weeks. Pain medication given. Discharge instr uctions given. Case discussed with Dr. Dixon. /KENTRELL Voice ID: [id number] Report ID: [id number]
== END 2017-10-12 12:30 | disposition home or self-care (01) ==
LOC: ER 13:58 → ERHOLD 16:32 → 4TH 17:42
PROVIDERS: ADMIT Internal Medicine; ATTEND Family Medicine
PROC: 0FT44ZZ Resection of Gallbladder, Percutaneous Endoscopic Approach (ICD-10-PCS; principal; 2017-10-11 09:00)
DX: K80.00 Calculus of gallbladder with acute cholecystitis without obstruction (principal); N83.202 Unspecified ovarian cyst, left side; I10 Essential (primary) hypertension; E78.5 Hyperlipidemia, unspecified; E03.9 Hypothyroidism, unspecified; E66.9 Obesity, unspecified; D64.9 Anemia, unspecified
CPT/HCPCS: 36415; 74177; 76705; 80048; 80053; 80076; 83690; 83735; 84100; 84132; 84439; 84443; 85025; 87040; 88304; 88305; 93005; 96374; 96375; 99285; G0378; J1100; J2175; J2270; J2370; J2405; J2543; J2550; J2710; J3010; J7030; Q9967

== ENCOUNTER → 2024-08-23 | Day surgery (SDC) | payer OTHER ==
--- NOTE | 2024-08-26 13:21 | RAD REPORT ---
EXAMINATION: Follow Up Breast [facility] CLINICAL INDICATION: Female, 58 years old. N63.21 TECHNIQUE: Limited real-time sonography in multiple planes of the LEFT breast. COMPARISON: 08/11/2024 FINDINGS: Ultrasound was obtained of the left breast in preparation for biopsy of a structure seen on an outsid e mammogram from 08/11/2024. The abnormality was again identified. On today's ultrasound, this appears to be more associated with the chest wall and intercostal space rather than representing a suspicious breast mass. A benign etiology is more likely given the morphology. IMPRESSION: 1. No left breast biopsy performed. The abnormality appeared to be more associated with the chest wal l and not a suspicious breast lesion. This was discussed with the patient. Depending on the patient's personal risk factors for breast cancer or to allay any patient anxiety, could consider eda gnostic breast MRI for further evaluation. 2. Recommendation: Recommend 6 month follow-up ultrasound of the left breast. As noted above and depe nding on patient's preference, further evaluation with MRI is another consideration. 3. BI-RAD III -Probably Benign Findings -6 Month Followup
== END ==
LOC: DS 09:23
PROVIDERS: ATTEND Physician Assistant
DX: N63.21 Unspecified lump in the left breast, upper outer quadrant (principal); Z53.09 Procedure and treatment not carried out because of other contraindication
CPT/HCPCS: 76642